=== PATIENT | female | born 1965 | race Caucasian/White ===

== ENCOUNTER 2023-08-02 12:48 | Emergency (ER) | payer OTHER, MEDICAID ==
[~2023-08-02] VITALS: Ht 121.9 cm; Wt 34.0 kg
[2023-08-02 13:25] VITALS: PULSE 76; RESP 20; TEMP 97.2; O2SAT 96
[2023-08-02 14:09] VITALS: PULSE 76; RESP 20; TEMP 97.2; O2SAT 96
== END 2023-08-02 14:09 | disposition home or self-care (01) ==
LOC: SED 12:48
DX: S61.051A Open bite of right thumb without damage to nail, initial encounter (principal); Z79.899 Other long term (current) drug therapy; W50.3XXA Accidental bite by another person, initial encounter; Y93.89 Activity, other specified; Y92.89 Other specified places as the place of occurrence of the external cause; Y99.8 Other external cause status
CPT/HCPCS: 99283